=== PATIENT | female | born 1980 | race African-American/Black ===

== ENCOUNTER 2021-02-10 16:47 | Emergency (ER) | payer OTHER ==
[~2021-02-10] VITALS: Ht 157.5 cm; Wt 67.0 kg
[2021-02-10 17:00] VITALS: BP 146/95
[2021-02-10] MEDS ORDERED: IBUPROFEN 600MG TABLET PO ONE (17:15)
[2021-02-10] MEDS ORDERED: IBUP-2029 MT (17:51)
== END 2021-02-10 18:00 | disposition home or self-care (01) ==
LOC: ER 16:47
DX: M79.644 Pain in right finger(s) (principal)
CPT/HCPCS: 29130; 73130; 81025; 99283

== ENCOUNTER 2021-03-12 03:32 | Emergency (ER) | payer OTHER ==
[~2021-03-12] VITALS: Ht 172.7 cm; Wt 81.0 kg
[~2021-03-12 03:32] MED LIST: IBUP-2029 MT
[2021-03-12] MEDS ORDERED: IBUPROFEN 400MG TABLET PO ONE (05:15)
[2021-03-12 05:24] VITALS: BP 133/80
== END 2021-03-12 05:28 | disposition home or self-care (01) ==
LOC: ER 03:32
DX: S63.694A Other sprain of right ring finger, initial encounter (principal); Z88.6 Allergy status to analgesic agent; X58.XXXA Exposure to other specified factors, initial encounter; Y93.89 Activity, other specified; Y92.018 Other place in single-family (private) house as the place of occurrence of the external cause
CPT/HCPCS: 99283

== ENCOUNTER 2021-03-18 03:40 | Emergency (ER) | payer OTHER ==
[~2021-03-18] VITALS: Ht 170.2 cm; Wt 97.0 kg
[2021-03-18] MEDS ORDERED: KETOROLAC 60MG/2ML VIAL IM ONE (04:00)
[2021-03-18 05:03] VITALS: BP 128/75
[2021-03-18] MEDS ORDERED: IBUP-2028 MT (05:36)
== END 2021-03-18 05:42 | disposition home or self-care (01) ==
LOC: ER 03:40
DX: M79.645 Pain in left finger(s) (principal); Z88.6 Allergy status to analgesic agent; Z88.5 Allergy status to narcotic agent
CPT/HCPCS: 73130; 81025; 96372; 99283; J1885

== ENCOUNTER 2021-03-21 02:58 | Emergency (ER) | payer OTHER ==
[~2021-03-21] VITALS: Ht 165.1 cm; Wt 73.0 kg
[~2021-03-21 02:58] MED LIST changes: +IBUP-2028 MT
[2021-03-21 03:00] VITALS: BP 136/92
[2021-03-21] MEDS ORDERED: IBUPROFEN 200MG TABLET PO ONE (03:30)
== END 2021-03-21 03:35 | disposition left against medical advice (07) ==
LOC: ER 02:58
DX: M79.602 Pain in left arm (principal); Z88.6 Allergy status to analgesic agent; Z88.5 Allergy status to narcotic agent
CPT/HCPCS: 99283

== ENCOUNTER 2021-04-19 02:50 | Emergency (ER) | payer OTHER ==
[~2021-04-19] VITALS: Ht 172.7 cm; Wt 115.0 kg
[2021-04-19] MEDS ORDERED: BO1 TP (04:12)
[2021-04-19] MEDS ORDERED: NAPR375T5 PO (04:12)
[2021-04-19 04:27] VITALS: BP 133/71
== END 2021-04-19 04:30 | disposition home or self-care (01) ==
LOC: ER 02:50
DX: S80.212A Abrasion, left knee, initial encounter (principal); W01.0XXA Fall on same level from slipping, tripping and stumbling without subsequent striking against object, initial encounter; Y93.89 Activity, other specified; Y92.89 Other specified places as the place of occurrence of the external cause
CPT/HCPCS: 99283

== ENCOUNTER 2021-04-29 00:52 | Emergency (ER) | payer OTHER ==
[~2021-04-29] VITALS: Ht 167.6 cm; Wt 73.0 kg
[~2021-04-29 00:52] MED LIST changes: +BO1 TP; +NAPR375T5 PO
[2021-04-29] MEDS ORDERED: TETRACAINE 0.5% OPHTH DROPS 4ML LEFTEYE ONE (03:30)
[2021-04-29] MEDS ORDERED: IBUPROFEN 600MG TABLET PO ONE (03:30)
[2021-04-29] MEDS ORDERED: FLUORESCEIN SODIUM 1MG/STRIP LEFTEYE ONE (03:30)
[2021-04-29] MEDS ORDERED: IBUP-2029 MT (04:55)
[2021-04-29 05:47] VITALS: BP 115/67
== END 2021-04-29 05:49 | disposition home or self-care (01) ==
LOC: ER 00:52
DX: S00.12XA Contusion of left eyelid and periocular area, initial encounter (principal); Z88.6 Allergy status to analgesic agent; Z88.5 Allergy status to narcotic agent; Y04.0XXA Assault by unarmed brawl or fight, initial encounter; Y93.89 Activity, other specified; Y92.89 Other specified places as the place of occurrence of the external cause; Y99.8 Other external cause status
CPT/HCPCS: 81025; 99283

== ENCOUNTER 2021-10-31 12:09 | Emergency (ER) | payer MEDICAID, OTHER ==
[~2021-10-31] VITALS: Ht 170.2 cm; Wt 86.0 kg
[~2021-10-31 12:09] MED LIST changes: -IBUP-2028 MT; -NAPR375T5 PO
[2021-10-31 12:14] VITALS: BP 123/88
[2021-10-31] MEDS ORDERED: KETOROLAC 60MG/2ML VIAL IM ONE (12:30)
[2021-10-31] MEDS ORDERED: IBUP-2028 MT (14:50)
== END 2021-10-31 16:09 | disposition home or self-care (01) ==
LOC: ER 12:09
DX: M25.551 Pain in right hip (principal); Z88.6 Allergy status to analgesic agent; Z88.5 Allergy status to narcotic agent
CPT/HCPCS: 73502; 96372; 99283; J1885

== ENCOUNTER 2021-11-08 05:33 | Emergency (ER) | payer OTHER ==
[~2021-11-08] VITALS: Ht 165.1 cm; Wt 102.0 kg
[~2021-11-08 05:33] MED LIST changes: +IBUP-2028 MT
[2021-11-08] MEDS ORDERED: IBUPROFEN 600MG TABLET PO ONE (09:15)
[2021-11-08] MEDS ORDERED: IBUP-2029 MT (10:32)
[2021-11-08 10:38] VITALS: BP 134/75
== END 2021-11-08 10:40 | disposition home or self-care (01) ==
LOC: ER 05:38
DX: M25.562 Pain in left knee (principal); Z88.6 Allergy status to analgesic agent
CPT/HCPCS: 73560; 99283

== ENCOUNTER 2021-11-10 00:17 | Emergency (ER) | payer OTHER ==
[~2021-11-10] VITALS: Ht 162.6 cm; Wt 100.0 kg
[2021-11-10] MEDS ORDERED: IBUPROFEN 800MG TABLET PO ONE (01:30)
[2021-11-10 02:08] VITALS: BP 128/50
== END 2021-11-10 02:24 | disposition home or self-care (01) ==
LOC: ER 00:17
DX: M25.561 Pain in right knee (principal)
CPT/HCPCS: 99283

== ENCOUNTER 2022-06-18 22:29 | Emergency (ER) | payer OTHER ==
[~2022-06-18] VITALS: Ht 172.7 cm; Wt 90.0 kg
[2022-06-18] MEDS ORDERED: IBUPROFEN 400MG TABLET PO ONE (22:45)
[2022-06-19] MEDS ORDERED: IBUPROFEN 400MG TABLET PO NR (01:30)
[2022-06-19 01:37] LABS: BASOPHILS % 0.6 % (0.0-2.0); EOSINOPHILS % 2.2 % (0.0-5.0); HEMATOCRIT. 31.2 % (36.0-48.0); HEMOGLOBIN. 10.6 g/dL (12.0-16.0); LYMPHOCYTES % 20.6 % (20.0-50.0); MEAN CORPUSCULAR HEMOGLOBIN 37.7 pg (28.0-32.0); MEAN CORPUSCULAR VOLUME 110.4 fL (81.0-99.0); MEAN PLATELET VOLUME 6.9 fl (7.4-10.4); NEUTROPHILS % 68.6 % (40.0-76.0); PLATELET 234 x1000/uL (130-400); RED BLOOD CELL COUNT 2.82 mill/uL (4.2-5.4); RED CELL DISTRIBUTION WIDTH 13.2 % (11.6-14.6)
[2022-06-19 01:45] LABS: CHLORIDE 114 mEq/L (98-107)
[2022-06-19 01:51] LABS: ETHANOL BLOOD 276 mg/dL
[2022-06-19] MEDS ORDERED: ACETAMINOPHEN 325MG TABLET PO ONE (04:45)
[2022-06-19] MEDS ORDERED: CEFTRIAXONE SODIUM 1 G/VIAL IM ONE (04:45)
[2022-06-19 08:00] VITALS: BP 118/74
== END 2022-06-19 08:32 | disposition left against medical advice (07) ==
LOC: ER 22:29
DX: N61.1 Abscess of the breast and nipple (principal); J45.909 Unspecified asthma, uncomplicated; Z79.899 Other long term (current) drug therapy; Z20.822 Contact with and (suspected) exposure to COVID-19
CPT/HCPCS: 36415; 76641; 80053; 80320; 81025; 85025; 87040; 87426; 96372; 99284; C9803; J0696; G0480

== ENCOUNTER 2022-07-06 20:02 | Emergency (ER) | payer OTHER ==
[~2022-07-06] VITALS: Ht 172.7 cm; Wt 80.0 kg
[2022-07-06 20:20] VITALS: BP 135/93
== END 2022-07-07 02:33 | disposition left against medical advice (07) ==
LOC: ER 20:02
DX: Z53.21 Procedure and treatment not carried out due to patient leaving prior to being seen by health care provider (principal)

== ENCOUNTER 2025-01-20 07:13 | Emergency (ER) | payer OTHER ==
[~2025-01-20] VITALS: Ht 165.1 cm; Wt 80.0 kg
[2025-01-20 07:16] VITALS: BP 117/80; PULSE 85; RESP 16; TEMP 36.6; O2SAT 98
[2025-01-20 08:03] VITALS: TEMP 97.8
[2025-01-20] MEDS: ACETAMINOPHEN 325MG TABLET PO ONE (08:03)
[2025-01-20] MEDS ORDERED: ACET-2708 MT (08:16)
== END 2025-01-20 09:15 | disposition home or self-care (01) ==
LOC: ER 07:21
DX: S52.502A Unspecified fracture of the lower end of left radius, initial encounter for closed fracture (principal); Z79.899 Other long term (current) drug therapy; W18.30XA Fall on same level, unspecified, initial encounter; Y93.89 Activity, other specified; Y92.89 Other specified places as the place of occurrence of the external cause; Y99.8 Other external cause status
CPT/HCPCS: 29125; 73090; 99283

== ENCOUNTER 2025-05-24 16:12 | Emergency (ER) | payer OTHER ==
[~2025-05-24] VITALS: Ht 170.2 cm; Wt 85.0 kg
[~2025-05-24 16:12] MED LIST changes: +ACET-2708 MT
[2025-05-24 16:18] VITALS: O2SAT 99
[2025-05-24] MEDS: SODIUM CHLORIDE 0.9% 1,000 ML IV ONE (16:51)
[2025-05-24 17:11] LABS: BASOPHILS % 0.2 % (0.0-2.0); EOSINOPHILS % 0.3 % (0.0-5.0); HEMATOCRIT. 27.7 % (36.0-48.0); HEMOGLOBIN. 8.6 g/dL (12.0-16.0); LYMPHOCYTES % 14.2 % (20.0-50.0); MEAN PLATELET VOLUME 7.7 fl (7.4-10.4); MONOCYTES % 2.9 % (2.0-8.0); NEUTROPHILS % 82.4 % (40.0-76.0); PLATELET 142 x1000/uL (130-400); RED BLOOD CELL COUNT 2.95 mill/uL (4.2-5.4); RED CELL DISTRIBUTION WIDTH 17.1 % (11.6-14.6)
[2025-05-24 17:22] LABS: INR 1.3
[2025-05-24 17:23] LABS: HCG SCREEN NEGATIVE
[2025-05-24 17:28] LABS: CREATININE 0.7 mg/dL (0.6-1.0); ETHANOL BLOOD < 10 mg/dL (<10); TROPONIN I HIGH SENSITIVITY 4 ng/L (3.0-34); UREA NITROGEN BLOOD 8 mg/dL (9-23)
[2025-05-24 17:29] LABS: ASPARTATE AMINOTRANSFERASE 10 IU/L (<34)
[2025-05-24 17:30] LABS: BILIRUBIN DIRECT 0.3 mg/dL (<=3.0); BILIRUBIN TOTAL 0.8 mg/dL (0.1-1.0); PROTEIN TOTAL 7.2 g/dL (6.0-8.3)
[2025-05-24] MEDS: POTASSIUM CHLORIDE 20MEQ/PACKET PO ONE (18:31)
[2025-05-24] MEDS: KCL 20MEQ/100ML PREMIX 100 ML IV ONE (19:14)
[2025-05-24 19:40] VITALS: BP 126/88; PULSE 130; RESP 14; TEMP 37.6; O2SAT 99
== END 2025-05-24 19:55 | disposition short-term general hospital (02) ==
LOC: ER 16:12 → CMPBEDREQ 05-25 07:34
DX: R53.1 Weakness (principal); R62.7 Adult failure to thrive; E87.6 Hypokalemia; D64.9 Anemia, unspecified; R51.9 Headache, unspecified; R06.02 Shortness of breath; Z20.822 Contact with and (suspected) exposure to COVID-19; Z88.5 Allergy status to narcotic agent; Z79.899 Other long term (current) drug therapy; Z86.73 Personal history of transient ischemic attack (TIA), and cerebral infarction without residual deficits
CPT/HCPCS: 80076; 80048; 80307; 80329; 80320; 82140; 82550; 84703; 83880; 83735; 85025; 85610; 85730; 86850; 86900; 86901; 84484; 36415; 71045; 72170; 70450; 93005; 96361; 96365; 99285; 87426; J3480; J7030; G0480